=== PATIENT | male | born 1970 | race Caucasian/White ===

== ENCOUNTER 2017-02-01 21:18 | Emergency (ER) | payer OTHER ==
[2017-02-01 22:50] LABS: BASOPHIL 0.8 % (0-2); EOSINOPHIL 2.6 % (0-5); HCT 43.2 % (42.0-52.0); HGB 15.5 g/dl (13.2-18.0); LYMPHOCYTE 29.7 % (15-48); MCH 32.5 pg (25.0-31.0); MCHC 35.9 g/dL (32.0-36.0); MCV 90.6 fL (78.0-100.0); MONOCYTE 8.8 % (0-12); MPV 10.4 fL (6.0-9.5); NEUTROPHIL 58.1 % (41-80); PLT 269 K/uL (150-400); RBC 4.77 M/uL (4.70-6.00); RDW 12.3 % (11.5-14.0); WBC 8.4 K/uL (4.0-10.5)
[2017-02-01 22:51] LABS: BILIRUBIN NEGATIVE (NEGATIVE); BLOOD NEGATIVE Ery/uL (NEGATIVE); CLARITY CLEAR (CLEAR); COLOR YELLOW (YELLOW); GLUCOSE (U) NORMAL (NORMAL); KETONE (U) NEGATIVE (NEGATIVE); LEUKOCYTES NEGATIVE Leu/uL (NEGATIVE); NITRITE NEGATIVE (NEGATIVE); PROTEIN NEGATIVE (NEGATIVE); SPECIFIC GRAVITY <=1.005 (1.001-1.030); UROBILINOGEN 0.2 mg/dL (0.2-1.0)
[2017-02-01 23:13] LABS: CKMB 1.58 ng/mL (0.97-4.94); TROPONIN T < 0.010 ng/mL
[2017-02-01 23:14] LABS: ALBUMIN 4.2 g/dL (3.5-5.0); BILIRUBIN - TOTAL 0.7 mg/dL (0.1-1.0); CREATININE 0.7 mg/dL (0.7-1.2); GLOBULIN (CALCULATION) 2.5 g/dL (2.2-4.2); POTASSIUM 3.7 mmol/L (3.5-5.1); TOTAL PROTEIN 6.7 g/dL (6.4-8.3)
== END 2017-02-02 00:03 | disposition home or self-care (01) ==
LOC: FER 21:18
PROVIDERS: Emergency Medicine Emergency Medical Services
DX: I10 Essential (primary) hypertension (principal); F17.299 Nicotine dependence, other tobacco product, with unspecified nicotine-induced disorders; Z79.899 Other long term (current) drug therapy
CPT/HCPCS: 36415; 71020; 80053; 81003; 82553; 84484; 85025; 93005